=== PATIENT | female | born 1970 | race African-American/Black ===

== ENCOUNTER 2019-12-05 11:30 | Emergency (ER) | payer OTHER ==
[~2019-12-05] VITALS: Ht 160 cm; Wt 97.5 kg
[~2019-12-05 11:30] MED LIST: AMITRIPTYLINE PO; IMITREX100 MG PO; TOPAMAX50 MG PO
[2019-12-05] MEDS ORDERED: AZITHROMYCIN 2250 MG PO (12:38)
[2019-12-05 13:00] VITALS: BP 137/95
== END 2019-12-05 13:30 | disposition home or self-care (01) ==
LOC: ER 11:30
DX: J02.8 Acute pharyngitis due to other specified organisms (principal); B96.89 Other specified bacterial agents as the cause of diseases classified elsewhere; H66.92 Otitis media, unspecified, left ear; F17.210 Nicotine dependence, cigarettes, uncomplicated; Z88.5 Allergy status to narcotic agent; Z88.7 Allergy status to serum and vaccine; Z79.899 Other long term (current) drug therapy; Z98.51 Tubal ligation status; Z98.890 Other specified postprocedural states

== ENCOUNTER 2019-12-14 14:29 | Emergency (ER) | payer OTHER ==
[~2019-12-14] VITALS: Ht 160 cm; Wt 97.5 kg
[~2019-12-14 14:29] MED LIST changes: +AZITHROMYCIN 2250 MG PO
[2019-12-14 14:31] VITALS: BP 136/96
[2019-12-14] MEDS ORDERED: SERTRALINE HCL100 MG PO (14:36)
[2019-12-14] MEDS ORDERED: TRAMADOL 50 MG50 MG PO (14:37)
[2019-12-14] MEDS ORDERED: SEROQUEL 50 MG50 MG PO (14:37)
[2019-12-14] MEDS ORDERED: ONDANSETRON HCL4 M2 PO (14:37)
[2019-12-14] MEDS ORDERED: MELOXICAM7.5 MG PO (14:38)
[2019-12-14] MEDS ORDERED: MOBIC15 MG PO (17:20)
[2019-12-14] MEDS ORDERED: NORCO 5-325 TA1 EAC2 PO (17:20)
[2019-12-14] MEDS ORDERED: CYCLOBENZAPRINE5 MG PO (17:44)
== END 2019-12-14 17:50 | disposition home or self-care (01) ==
LOC: ER 14:29
DX: S46.812A Strain of other muscles, fascia and tendons at shoulder and upper arm level, left arm, initial encounter (principal); F17.210 Nicotine dependence, cigarettes, uncomplicated; Z79.899 Other long term (current) drug therapy; Z88.5 Allergy status to narcotic agent; Z88.6 Allergy status to analgesic agent; X58.XXXA Exposure to other specified factors, initial encounter; Y93.89 Activity, other specified; Y92.89 Other specified places as the place of occurrence of the external cause; Y99.8 Other external cause status